=== PATIENT | male | born 1990 | race Caucasian/White ===

== ENCOUNTER 2018-05-14 04:03 | Emergency (ER) | payer MEDICAID ==
[~2018-05-14 04:03] MED LIST: IBUPROFEN 800 MG TAB PO SCH; PENICILLIN VK 500 MG TAB PO SCH
[2018-05-14 04:13] VITALS: BP 130/99
--- NOTE | 2018-05-14 04:14 | EDPHY ---
H & P Stated Complaint: r sided jaw pain for "years" hx of jaw fx Time Seen by Provider: 05/14/18 04:14 HPI/ROS: HPI CHIEF COMPLAINT: Right posterior upper jaw pain HISTORY OF PRESENT ILLNESS: 27-year-old male, otherwise healthy, presents emergency room with right upper posterior molar dental pain. He reports to me he has had this for months. However last 24 hr it has gotten worse. He denies any gumline swelling or jaw swelling, denies fever. Presents emergency room for pain control possible antibiotics. Patient is homeless. He does smoke tobacco. Past Medical History: Denies medical history Past Surgical History: Denies surgical history Social History: He smokes tobacco, homeless, denies illicit drugs or alcohol. Family History: Noncontributory ROS REVIEW OF SYSTEMS: A comprehensive 10 point review of systems is otherwise negative aside from elements mentioned in the history of present illness. Exam Constitutional nontoxic. triage nursing summary reviewed, vital signs reviewed , awake/alert. Eyes normal conjunctivae and sclera, EOMI, PERRLA. HENT oropharynx: Posterior upper molar he is tender palpation however no gumline abscess, no García's, posterior pharynx unremarkable no swelling, no significant dental caries visualized normal inspection, atraumatic, moist mucus membranes, no epistaxis, neck supple/ no meningismus, no raccoon eyes. Respiratory clear to auscultation bilaterally, normal breath sounds, no respiratory distress, no wheezing. Cardiovascular rate normal, regular rhythm, no murmur, no edema, distal pulses normal. Gastrointestinal soft, non-tender, no rebound, no guarding, normal bowel sounds, no distension, no pulsatile mass. Genitourinary no CVA tenderness. Musculoskeletal no midline vertebral tenderness, full range of motion, no calf swelling, no tenderness of extremities, no meningismus, good pulses, neurovascularly intact. Skin pink, warm, & dry, no rash, skin atraumatic. Neurologic awake, alert and oriented x 3, AAOx3, moves all 4 extremities equally, motor intact, sensory intact, CN II-XII intact, normal cerebellar, normal vision, normal speech. Psychiatric normal mood/affect. Heme/Lymph/Immune no lymphadenopathy. Differential Diagnosis: Includes but is not limited to in a particular order dental infection, acute dental pain, dental fracture, dental caries, apical abscess, pulpitis Medical Decision Making: Plan for this patient patient is homeless and has no way to get his prescriptions filled will send pharmacy to fill penicillin VK as well as ibuprofen. 1st dose given in emergency room. Additionally dental resources will be given to him for follow-up. Return precautions discussed with him. He understands Source: Patient - Personal History Current Tetanus/Diphtheria Vaccine: Yes Current Tetanus Diphtheria and Acellular Pertussis (TDAP): Yes - Medical/Surgical History Hx Asthma: No Hx Chronic Respiratory Disease: No Hx Diabetes: No Hx Cardiac Disease: No Hx Renal Disease: No Hx Cirrhosis: No Hx Alcoholism: No Hx HIV/AIDS: No Hx Splenectomy or Spleen Trauma: No Other PMH: jaw surgery 5 yr ago. appy - Social History Smoking Status: Current some day smoker Constitutional: Initial Vital Signs Temperature (C) 36.7 C 05/14/18 04:08 Heart Rate 93 05/14/18 04:08 Respiratory Rate 18 05/14/18 04:08 Blood Pressure 130/99 H 05/14/18 04:08 O2 Sat (%) 95 05/14/18 04:08 O2 Delivery Mode Room Air Allergies/Adverse Reactions: No Known Allergies Allergy (Unverified 05/14/18 04:08) Home Medications: Medication Instructions Recorded Ibuprofen [Motrin (*)] 800 mg PO BID #14 tab 05/14/18 Penicillin V Potassium [Penicillin 500 mg PO BID #14 tab 05/14/18 VK] Departure - Departure Disposition: Home, Routine, Self-Care Clinical Impression: Pain, dental Condition: Good Instructions: Toothache (ED) Referrals: NONE *PRIMARY CARE P,. [Primary Care Provider] - As per Instructions [facility] [Outside] - As per Instructions [facility] [Outside] - As per Instructions Dental [facility] [Outside] - As per Instructions Dental [facility] [Outside] - As per Instructions Dental [facility] [Outside] - As per Instructions Prescriptions: Ibuprofen [Motrin (*)] 800 mg PO BID #14 tab Penicillin V Potassium [Penicillin VK] 500 mg PO BID #14 tab
[2018-05-14] MEDS ORDERED: IBUPROFEN 600 MG TAB PO ONE (04:17)
== END 2018-05-14 05:30 | disposition home or self-care (01) ==
DX: K08.89 Other specified disorders of teeth and supporting structures (principal); F17.200 Nicotine dependence, unspecified, uncomplicated